=== PATIENT | female | born 1940 ===

== ENCOUNTER 2024-01-26 19:25 | Inpatient (IN) | payer MEDICARE, BC ==
[~2024-01-26] VITALS: Ht 160 cm; Wt 49.2 kg
[2024-01-26 21:00] VITALS: BP 125/43; TEMP 97.2; O2SAT 96
[2024-01-26] MEDS ORDERED: APIX2.5T PO (21:27)
[2024-01-26] MEDS ORDERED: POLY17PO4 PO (21:28)
[2024-01-26] MEDS ORDERED: SIMV10TA2 PO (21:30)
[2024-01-26] MEDS ORDERED: SOTA80TA PO (21:31)
[2024-01-26] MEDS ORDERED: ALPR0.5T8 PO (21:34)
[2024-01-26] MEDS ORDERED: HYDR-501 PO (21:35)
[2024-01-26] MEDS ORDERED: hydrOXYzine HCL 25 MG TABLET PO PRN (23:00)
[2024-01-26] MEDS: APIXABAN 2.5 MG TABLET PO SCH (23:23)
[2024-01-26] MEDS: ALPRAZOLAM 0.5 MG TABLET PO PRN (23:28)
[2024-01-27] MEDS: HYDROCODONE/APAP 5-325MG TABLET PO PRN (03:17)
[2024-01-27 06:11] VITALS: BP 123/44; TEMP 98; O2SAT 92
[2024-01-27] MEDS: SIMVASTATIN 10 MG TABLET PO SCH (08:45)
[2024-01-27] MEDS: SOTALOL HCL 80 MG TABLET PO SCH (08:46)
[2024-01-27] MEDS: MIRALAX 17 GM POWD.PACK PO SCH (08:46)
[2024-01-27 15:31] VITALS: BP 116/45; TEMP 97.8; O2SAT 94
[2024-01-27 20:11] VITALS: BP 122/48; TEMP 99.5; O2SAT 95
[2024-01-28 06:07] VITALS: BP 139/49; TEMP 97.9; O2SAT 95
[2024-01-28 15:23] VITALS: BP 129/52; TEMP 98.4; O2SAT 96
[2024-01-28 22:40] VITALS: BP 132/42; TEMP 97.7; O2SAT 96
[2024-01-29 05:36] VITALS: BP 148/50; TEMP 98.2; O2SAT 94
[2024-01-29] MEDS: ENSURE WITH FIBER 237 ML LIQUID (CHOCOLATE) PO SCH (12:18)
[2024-01-29 15:28] VITALS: BP 115/45; TEMP 97.6; O2SAT 96
[2024-01-29 20:26] VITALS: BP 136/50; TEMP 98.5; O2SAT 95
[2024-01-30 06:20] VITALS: BP 133/73; TEMP 98; O2SAT 96
[2024-01-30] MEDS: REMEDY ESSENTIAL ZINC PASTE 113 GM TOP SCH (09:17)
[2024-01-30 16:00] VITALS: BP 115/57; TEMP 98.2; O2SAT 97
[2024-01-30 20:31] VITALS: BP 119/72; TEMP 98.6; O2SAT 95
[2024-01-30] MEDS: ACETAMINOPHEN 325 MG TABLET PO PRN (22:12)
[2024-01-31 06:30] VITALS: BP 134/55; TEMP 97.9; O2SAT 96
[2024-01-31 16:45] VITALS: BP 132/36; TEMP 97.6; O2SAT 97
[2024-01-31 20:35] VITALS: BP 140/53; TEMP 98.5; O2SAT 96
[2024-02-01 06:25] VITALS: BP 133/49; TEMP 98.3; O2SAT 96
[2024-02-01 15:13] VITALS: BP 101/49; TEMP 98.4; O2SAT 95
[2024-02-01 20:00] VITALS: BP 115/62; TEMP 98; O2SAT 94
[2024-02-02 08:32] VITALS: BP 112/41; TEMP 98; O2SAT 96
[2024-02-02 15:58] VITALS: BP 109/38; TEMP 98.3; O2SAT 97
[2024-02-02 21:18] VITALS: BP 109/37; TEMP 98.3; O2SAT 97
[2024-02-03 04:51] VITALS: BP 120/46; TEMP 98.2; O2SAT 97
[2024-02-03 07:50] LABS: BASOPHILS % (AUTO) 0.8 % (0.0-2.0); EOSINOPHILS # (AUTO) 0.3 K/uL (0.0-0.7); EOSINOPHILS % (AUTO) 5.1 % (0.0-7.0); HEMOGLOBIN 9.3 g/dL (10.9-14.3); LYMPHOCYTES # (AUTO) 1.1 K/uL (0.8-4.8); LYMPHOCYTES % (AUTO) 20.2 % (20.5-51.5); MEAN CORPUSCULAR HEMOGLOBIN 29.4 uug (24.7-32.8); MEAN CORPUSCULAR HGB CONC 34 g/dL (32.3-35.6); MEAN CORPUSCULAR VOLUME 85.7 fL (75.5-95.3); MONOCYTES # (AUTO) 0.6 K/uL (0.1-1.30); MONOCYTES % (AUTO) 9.9 % (0.0-11.0); NEUTROPHILS # (AUTO) 3.6 K/uL (1.8-8.9); PLATELET COUNT (AUTO) 274 K/uL (179-408); RED BLOOD CELL COUNT(AUTO) 3.15 MIL/uL (3.63-4.92); RED CELL DISTRIBUTION WIDTH 16.4 % (12.3-17.7); WHITE BLOOD COUNT (AUTO) 5.7 K/uL (3.8-11.8)
[2024-02-03 08:04] LABS: DIFFERENTIAL COMMENT 1
[2024-02-03 08:12] LABS: ALANINE AMINOTRANSFERASE 13 U/L (14-59); ALBUMIN 2.9 g/dL (3.4-5.0); ALKALINE PHOSPHATASE 85 U/L (50-136); ASPARTATE AMINOTRANSFERASE 11 U/L (15-37); BILIRUBIN,TOTAL 1.1 mg/dL (0.2-1.0); CALCIUM 8.6 mg/dL (8.5-10.1); CARBON DIOXIDE 28 mmol/L (21-32); CHLORIDE 103 mmol/L (98-107); CREATININE 0.9 mg/dL (0.6-1.3); GLUCOSE 107 mg/dL (74-106); MAGNESIUM 2.4 mg/dL (1.8-2.4); PHOSPHOROUS 4.9 mg/dL (2.5-4.9); POTASSIUM 4.4 mmol/L (3.5-5.1); SODIUM SERUM 137 mmol/L (136-145); TOTAL PROTEIN, SERUM 6.9 g/dL (6.4-8.2); UREA NITROGEN, BLOOD 24 mg/dL (7-18)
[2024-02-03 17:04] VITALS: BP 108/36; TEMP 98.2; O2SAT 96
[2024-02-03 20:00] VITALS: BP 112/87; TEMP 98.6; O2SAT 95
[2024-02-03 20:15] VITALS: BP 143/38; TEMP 98; O2SAT 94
[2024-02-04 05:45] VITALS: BP 114/41; TEMP 97.3; O2SAT 95
[2024-02-04 11:59] VITALS: BP 110/40; TEMP 97.7; O2SAT 94
[2024-02-04 15:52] VITALS: BP 108/40; TEMP 98.6; O2SAT 95
[2024-02-04 19:00] VITALS: BP 114/41; TEMP 98.1; O2SAT 97
[2024-02-05 06:00] VITALS: BP 120/83; TEMP 97.8; O2SAT 94
[2024-02-05 16:36] VITALS: BP 108/48; TEMP 97.8; O2SAT 96
[2024-02-05 19:00] VITALS: BP 117/57; TEMP 98; O2SAT 95
[2024-02-06 06:00] VITALS: BP 130/37; TEMP 98.1; O2SAT 94
[2024-02-06 20:59] VITALS: BP 124/43; TEMP 98.2; O2SAT 94
[2024-02-07 04:00] VITALS: BP 123/38; TEMP 97.8; O2SAT 95
[2024-02-07 11:37] VITALS: BP 99/40; TEMP 97.8; O2SAT 94
[2024-02-07 16:14] VITALS: BP 101/38; TEMP 97.9; O2SAT 95
[2024-02-07 19:58] VITALS: BP 125/37; TEMP 98.1; O2SAT 96
[2024-02-08 05:00] VITALS: BP 106/45; TEMP 97.6; O2SAT 97
[2024-02-08 16:35] VITALS: BP 123/53; TEMP 98.2; O2SAT 100
[2024-02-08 20:00] VITALS: BP 120/73; TEMP 98; O2SAT 98
[2024-02-09 07:47] LABS: BASOPHILS # (AUTO) 0.1 K/UL (0.0-0.2); BASOPHILS % (AUTO) 1.1 % (0.0-2.0); EOSINOPHILS # (AUTO) 0.3 K/uL (0.0-0.7); EOSINOPHILS % (AUTO) 5.4 % (0.0-7.0); HEMATOCRIT 28.7 % (31.2-41.9); HEMOGLOBIN 9.9 g/dL (10.9-14.3); LYMPHOCYTES # (AUTO) 1.3 K/uL (0.8-4.8); LYMPHOCYTES % (AUTO) 27.1 % (20.5-51.5); MEAN CORPUSCULAR HEMOGLOBIN 29.8 uug (24.7-32.8); MEAN CORPUSCULAR HGB CONC 34 g/dL (32.3-35.6); MEAN CORPUSCULAR VOLUME 86.6 fL (75.5-95.3); MONOCYTES # (AUTO) 0.4 K/uL (0.1-1.30); MONOCYTES % (AUTO) 8.8 % (0.0-11.0); NEUTROPHILS # (AUTO) 2.7 K/uL (1.8-8.9); NEUTROPHILS % (AUTO) 57.6 % (38.5-71.5); PLATELET COUNT (AUTO) 259 K/uL (179-408); RED BLOOD CELL COUNT(AUTO) 3.31 MIL/uL (3.63-4.92); WHITE BLOOD COUNT (AUTO) 4.8 K/uL (3.8-11.8)
[2024-02-09 07:52] LABS: DIFFERENTIAL COMMENT 1
[2024-02-09 07:54] LABS: ALANINE AMINOTRANSFERASE 12 U/L (14-59); ALBUMIN 3.1 g/dL (3.4-5.0); ALKALINE PHOSPHATASE 103 U/L (50-136); ASPARTATE AMINOTRANSFERASE 6 U/L (15-37); CALCIUM 8.8 mg/dL (8.5-10.1); CARBON DIOXIDE 26 mmol/L (21-32); CHLORIDE 103 mmol/L (98-107); CREATININE 0.9 mg/dL (0.6-1.3); GLUCOSE 96 mg/dL (74-106); MAGNESIUM 2.2 mg/dL (1.8-2.4); PHOSPHOROUS 4.2 mg/dL (2.5-4.9); POTASSIUM 3.8 mmol/L (3.5-5.1); SODIUM SERUM 137 mmol/L (136-145); TOTAL PROTEIN, SERUM 7.1 g/dL (6.4-8.2); UREA NITROGEN, BLOOD 26 mg/dL (7-18)
[2024-02-09 15:20] VITALS: BP 108/45; TEMP 98.2; O2SAT 96
[2024-02-09 20:16] VITALS: BP 110/36; TEMP 97.5; O2SAT 95
[2024-02-10 06:37] VITALS: BP 125/44; TEMP 97.4; O2SAT 97
[2024-02-10 08:59] VITALS: BP 119/44
== END 2024-02-10 15:15 | disposition home health service (06) | DRG 560 ==
PROVIDERS: ADMIT Physical Medicine & Rehabilitation Pain Medicine; ATTEND Physical Medicine & Rehabilitation Pain Medicine
DX: S72.141D Displaced intertrochanteric fracture of right femur, subsequent encounter for closed fracture with routine healing (principal); D62 Acute posthemorrhagic anemia; N17.9 Acute kidney failure, unspecified; E03.8 Other specified hypothyroidism; I48.91 Unspecified atrial fibrillation; I10 Essential (primary) hypertension; E78.5 Hyperlipidemia, unspecified; W18.30XD Fall on same level, unspecified, subsequent encounter; D72.829 Elevated white blood cell count, unspecified; L29.9 Pruritus, unspecified
CPT/HCPCS: 36415; 73502; 83735; 84100; 85025; 97535-GO-CO; A4663; A6213